=== PATIENT | female | born 1985 | race Caucasian/White ===

== ENCOUNTER 2022-10-06 11:21 | Observation (INO) | payer MEDICAID ==
[~2022-10-06] VITALS: Ht 154.9 cm; Wt 76.7 kg
[2022-10-06 13:46] LABS: BASOPHILS % 0.3 % (0.0-2.0); EOSINOPHILS % 0.6 % (0.0-5.0); HEMATOCRIT. 31.3 % (36.0-48.0); HEMOGLOBIN. 10.4 g/dL (12.0-16.0); LYMPHOCYTES % 21.3 % (20.0-50.0); MEAN CORPUSCULAR HEMOGLOBIN 25.6 pg (28.0-32.0); MEAN CORPUSCULAR VOLUME 77.3 fL (81.0-99.0); MEAN PLATELET VOLUME 8.8 fl (7.4-10.4); MONOCYTES % 7.3 % (2.0-8.0); NEUTROPHILS % 70.5 % (40.0-76.0); PLATELET 195 x1000/uL (130-400); RED BLOOD CELL COUNT 4.05 mill/uL (4.2-5.4); RED CELL DISTRIBUTION WIDTH 15.3 % (11.6-14.6)
[2022-10-06 13:47] LABS: CHLORIDE 108 mEq/L (98-107)
[2022-10-06 13:53] LABS: D-DIMER 3.98 mg/L FEU (<0.50)
[2022-10-06 13:54] LABS: D-DIMER 3.99 mg/L FEU (<0.50); INR 0.9; PARTIAL THROMBOPLASTIN TIME 27.1 sec (23.4-31.0); PROTHROMBIN TIME 9.9 sec (9.6-11.0)
[2022-10-06 14:07] LABS: CLARITY URINE CLEAR (CLEAR); COLOR URINE YELLOW (YELLOW); KETONES URINE TRACE (NEGATIVE); LEUKOCYTE ESTERASE URINE 3+ (NEGATIVE); NITRITE URINE NEGATIVE (NEGATIVE); OCCULT BLOOD URINE NEGATIVE (NEGATIVE); PH URINE 7.5 (4.5-8.0); PROTEIN URINE NEGATIVE (NEGATIVE); SPECIFIC GRAVITY URINE 1.011 (1.005-1.030); UROBILINOGEN URINE 0.2 E.U./dL (0.2-1.0)
== END 2022-10-06 15:00 | disposition home or self-care (01) ==
LOC: 8 EST A/PP 11:21
PROVIDERS: ADMIT Obstetrics & Gynecology; ATTEND Obstetrics & Gynecology
DX: O26.893 Other specified pregnancy related conditions, third trimester (principal); R51.9 Headache, unspecified; Z3A.34 34 weeks gestation of pregnancy; Z79.899 Other long term (current) drug therapy
CPT/HCPCS: 36415; 59025; 76805; 76818; 80053; 81003; 84550; 85025; 85379; 85384; 85610; 85730; G0378; 99281

== ENCOUNTER 2022-11-13 00:47 | Inpatient (IN) | payer MEDICAID ==
[~2022-11-13] VITALS: Ht 152.4 cm; Wt 76.7 kg
[2022-11-13] MEDS ORDERED: FERR325T6 MT (01:18)
[2022-11-13] MEDS ORDERED: PNV1TABL50 MT (01:18)
[2022-11-13] MEDS ORDERED: NALOXONE HCL 0.4 MG/ML 1ML VIAL IM PRN (01:45)
[2022-11-13] MEDS ORDERED: CARBOPROST TROMETHAMINE 250 MCG/ML AMPUL IM PRN (01:45)
[2022-11-13] MEDS ORDERED: RHO(D) IMMUNE GLOBULIN 300 MCG/SYR IM ONE (01:45)
[2022-11-13] MEDS ORDERED: BUTORPHANOL TARTRATE 2 MG/ML VIAL IV PRN (01:45)
[2022-11-13] MEDS ORDERED: MISOPROSTOL 100MCG TABLET VG SCH (01:45)
[2022-11-13] MEDS ORDERED: LACTATED RINGERS 1,000 ML IV SCH (01:45)
[2022-11-13] MEDS ORDERED: LIDOCAINE HCL 1% 20ML VIAL (Pyxis) INJ INFIL SCH (01:45)
[2022-11-13] MEDS ORDERED: METHYLERGONOVINE MALEATE 0.2 MG/ML IM PRN (01:45)
[2022-11-13 02:39] LABS: CLARITY URINE CLOUDY (CLEAR); COLOR URINE YELLOW (YELLOW); KETONES URINE NEGATIVE (NEGATIVE); LEUKOCYTE ESTERASE URINE 3+ (NEGATIVE); NITRITE URINE NEGATIVE (NEGATIVE); OCCULT BLOOD URINE 2+ (NEGATIVE); PH URINE 6.5 (4.5-8.0); PROTEIN URINE NEGATIVE (NEGATIVE); SPECIFIC GRAVITY URINE 1.009 (1.005-1.030); UROBILINOGEN URINE 0.2 E.U./dL (0.2-1.0)
[2022-11-13 02:54] LABS: *AMPHETAMINES SCREEN URINE NEGATIVE (NEGATIVE); *BARBITURATES SCREEN URINE NEGATIVE (NEGATIVE); *BENZODIAZEPINES SCREEN URINE NEGATIVE (NEGATIVE); *COCAINE SCREEN URINE NEGATIVE (NEGATIVE); CANNABINOID URINE SCREEN NEGATIVE (NEGATIVE); METHADONE URINE SCREEN NEGATIVE (NEGATIVE); OPIATES URINE SCREEN NEGATIVE (NEGATIVE); PHENCYCLIDINE URINE SCREEN NEGATIVE (NEGATIVE)
[2022-11-13] MEDS ORDERED: IBUPROFEN 400MG TABLET PO PRN (03:15)
[2022-11-13] MEDS ORDERED: RHO(D) IMMUNE GLOBULIN 300 MCG/SYR IM PRN (03:15)
[2022-11-13 03:22] LABS: BASOPHILS % 0.3 % (0.0-2.0); EOSINOPHILS % 0.8 % (0.0-5.0); HEMATOCRIT. 34.8 % (36.0-48.0); HEMOGLOBIN. 11.3 g/dL (12.0-16.0); LYMPHOCYTES % 33.5 % (20.0-50.0); MEAN CORPUSCULAR HEMOGLOBIN 24.6 pg (28.0-32.0); MEAN PLATELET VOLUME 9.6 fl (7.4-10.4); MONOCYTES % 8.6 % (2.0-8.0); NEUTROPHILS % 56.8 % (40.0-76.0); PLATELET 186 x1000/uL (130-400); RED BLOOD CELL COUNT 4.58 mill/uL (4.2-5.4)
[2022-11-13 03:26] LABS: INR 0.9; PARTIAL THROMBOPLASTIN TIME 26.6 sec (23.4-31.0); PROTHROMBIN TIME 9.4 sec (9.6-11.0)
[2022-11-13] MEDS: OXYTOCIN 30 UNITS/500ML NS PMX 500 ML IV SCH ×2 (03:45→05:09)
[2022-11-13] MEDS: IBUPROFEN 800MG TABLET PO PRN (03:59)
[2022-11-13 05:20] VITALS: BP 119/64
[2022-11-13 06:15] VITALS: BP 113/62
[2022-11-13] MEDS: PRENATAL VIT/FE FUMARATE/FA TABLET PO SCH (09:00)
[2022-11-13 10:00] VITALS: BP 114/66
[2022-11-13 15:00] VITALS: BP 111/65
[2022-11-13 19:39] LABS: HEPATITIS B SURFACE ANTIGEN NEGATIVE
[2022-11-13 21:37] VITALS: BP 106/68
[2022-11-14 05:31] VITALS: BP 106/67
[2022-11-14 06:19] LABS: BASOPHILS % 0.4 % (0.0-2.0); EOSINOPHILS % 0.8 % (0.0-5.0); HEMATOCRIT. 28.8 % (36.0-48.0); HEMOGLOBIN. 9.7 g/dL (12.0-16.0); MEAN CORPUSCULAR HEMOGLOBIN 25.1 pg (28.0-32.0); MEAN CORPUSCULAR VOLUME 74.8 fL (81.0-99.0); MONOCYTES % 6.3 % (2.0-8.0); NEUTROPHILS % 64.5 % (40.0-76.0); PLATELET 156 x1000/uL (130-400); RED BLOOD CELL COUNT 3.85 mill/uL (4.2-5.4)
[2022-11-14] MEDS: FERROUS SULFATE 325MG TABLET PO SCH ×3 (07:30→17:30)
[2022-11-14 08:00] VITALS: BP 108/64
[2022-11-14] MEDS: PRENATAL VIT/FE FUMARATE/FA TABLET PO SCH (08:21)
[2022-11-14] MEDS ORDERED: PROPOFOL 200MG/20ML VIAL IV ONE (10:18)
[2022-11-14] MEDS ORDERED: ONDANSETRON HCL 4MG/2ML INJ ONE (10:25)
[2022-11-14] MEDS ORDERED: DEXAMETHASONE 4MG/ML 1ML VIAL ONE (10:25)
[2022-11-14] MEDS ORDERED: FENTANYL CITRATE/PF 50MCG/ML 2ML VIAL ONE (10:25)
[2022-11-14] MEDS ORDERED: MIDAZOLAM HCL 2 MG/2 ML VIAL ONE (10:25)
[2022-11-14] MEDS ORDERED: KETOROLAC 60MG/2ML VIAL IM ONE (10:26)
[2022-11-14] MEDS ORDERED: LIDOCAINE HCL/PF 1% 10 MG/ML 5ML VIAL ONE (10:26)
[2022-11-14] MEDS ORDERED: CEFAZOLIN SODIUM 1000MG/VIAL ONE ×2 (10:26)
[2022-11-14] MEDS ORDERED: SUCCINYLCHOLINE CHLORIDE 200MG/10ML IV ONE ×2 (11:30→13:02)
[2022-11-14] MEDS ORDERED: FENTANYL CITRATE/PF 50MCG/ML 2ML VIAL IV PRN (13:15)
[2022-11-14] MEDS ORDERED: HYDROMORPHONE HCL/PF 2MG/ML CPJ IV PRN (13:15)
[2022-11-14 15:00] VITALS: BP 113/69
[2022-11-14] MEDS: IBUPROFEN 800MG TABLET PO PRN (16:28)
[2022-11-14 20:00] VITALS: BP 108/60
[2022-11-15 04:30] VITALS: BP 106/55
[2022-11-15] MEDS: FERROUS SULFATE 325MG TABLET PO SCH (07:30)
[2022-11-15 07:39] VITALS: BP 105/55
[2022-11-15] MEDS: PRENATAL VIT/FE FUMARATE/FA TABLET PO SCH (08:31)
== END 2022-11-15 11:25 | disposition home or self-care (01) | DRG 541 ==
LOC: OBSVTOIN 00:47 → 8 EST LDRP 00:47 → 8EST 05:20
PROVIDERS: ADMIT Obstetrics & Gynecology; ATTEND Obstetrics & Gynecology
PROC: 10E0XZZ Delivery of Products of Conception, External Approach (ICD-10-PCS; principal; 2022-11-13)
PROC: 0UB70ZZ Excision of Bilateral Fallopian Tubes, Open Approach (ICD-10-PCS; 2022-11-14)
DX: O99.02 Anemia complicating childbirth (principal); Z37.0 Single live birth; D62 Acute posthemorrhagic anemia; Z3A.39 39 weeks gestation of pregnancy; Z20.822 Contact with and (suspected) exposure to COVID-19
CPT/HCPCS: 36415; 76805; 76818; 80305; 81003; 85025; 86592; 86703; 86762; 86850; 86900; 87340; 87426; 88302; 99281; J0330; J0690; J1100; J1885; J2250; J2405; J2704; J3010; J3490; J7120; J2590